=== PATIENT | female | born 1990 | race Caucasian/White ===

== ENCOUNTER 2022-01-30 15:16 | Emergency (ER) | payer OTHER ==
[2022-01-30 15:38] VITALS: BP 163/87; PULSE 107; RESP 18; TEMP 98.2; BMI 29.2
[2022-01-30 18:16] LABS: BASO % 0.5 % (0-2.0); EOS % 0.6 % (0-4.5); HEMATOCRIT 37.8 % (32.4-45.2); HEMOGLOBIN 12.8 GM/dL (10.7-15.3); LYMPH % 26.3 % (8-40); MCH 28.3 pg (25.7-33.7); MEAN CELL VOLUME 83.3 fl (80-96); MEAN PLT VOLUME 8.8 fl (7.5-11.1); MONO % 6.3 % (3.8-10.2); NEUT % 66.3 % (42.8-82.8); PLATELET COUNT 348 10^3/uL (134-434); RBC 4.54 M/mm3 (3.60-5.2); RDW 13.1 % (11.6-15.6); WHITE BLOOD COUNT 9.6 K/mm3 (4.0-10.0)
[2022-01-30 18:26] LABS: INR 1.07 (0.83-1.09); PROTHROMBIN TIME (PATIENT) 12.3 SEC (9.7-13.0)
[2022-01-30 18:29] LABS: ACTIVATED PTT 33.2 SECONDS (25.2-36.5)
[2022-01-30 18:33] LABS: CALCIUM 9.1 mg/dL (8.5-10.1)
[2022-01-30 18:34] LABS: ALBUMIN 3.6 g/dl (3.4-5.0); BLOOD UREA NITROGEN 10.2 mg/dL (7-18)
[2022-01-30 18:37] LABS: CREATININE 0.7 mg/dL (0.55-1.3)
[2022-01-30 18:38] LABS: BILIRUBIN,TOTAL 0.3 mg/dL (0.2-1); TOT PROT 6.9 g/dl (6.4-8.2)
[2022-01-30 20:43] LABS: EPI CELLS 18 /uL (0-25.1); HYALINE CASTS 1 /uL (0-3.1); URINE APPEARANCE CLEAR; URINE BACTERIA 261 /uL (0-1359); URINE BILIRUBIN NEGATIVE (NEGATIVE); URINE COLOR YELLOW; URINE GLUCOSE (UA) NEGATIVE (NEGATIVE); URINE KETONE NEGATIVE (NEGATIVE); URINE LEUK ESTERASE NEGATIVE (NEGATIVE); URINE NITRITE NEGATIVE (NEGATIVE); URINE PROTEIN NEGATIVE (NEGATIVE); URINE UROBILINOGEN 0.2 mg/dL (0.2-1.0); URINE WBC 6 /uL (0-25.8)
[2022-01-30 21:10] LABS: URINE RBC 24.8 /uL (0-23.9)
== END 2022-01-30 21:31 | disposition home or self-care (01) ==
LOC: JER 15:16
DX: O20.8 Other hemorrhage in early pregnancy (principal); Z3A.01 Less than 8 weeks gestation of pregnancy
CPT/HCPCS: 36415; 76801-TC; 80053; 81003; 84702; 85025; 85610; 85730; 86850; 86900; 86901; 87077; 87086; 99284-25

== ENCOUNTER 2022-09-14 08:10 | Inpatient (IN) | payer OTHER ==
[2022-09-14] MEDS ORDERED: ELECTROLYTE-148 SOLN 500 ML IV ONE (09:03)
[2022-09-14] MEDS ORDERED: CITRIC ACID/SODIUM CITRATE 30 ML UNIT-DOSE CUP PO ONE (09:03)
[2022-09-14] MEDS ORDERED: ELECTROLYTE-148 SOLN 1,000 ML IV SCH (09:30)
[2022-09-14 09:40] VITALS: BMI 34.0
[2022-09-14] MEDS ORDERED: morphine SULFATE/PF 1 MG/2 ML (2cc Syringe - QUVA) ONE (10:18)
[2022-09-14 11:27] LABS: URINE APPEARANCE CLEAR; URINE BILIRUBIN NEGATIVE (NEGATIVE); URINE COLOR YELLOW; URINE GLUCOSE (UA) NEGATIVE (NEGATIVE); URINE KETONE NEGATIVE (NEGATIVE); URINE LEUK ESTERASE NEGATIVE (NEGATIVE); URINE NITRITE NEGATIVE (NEGATIVE); URINE PROTEIN NEGATIVE (NEGATIVE)
[2022-09-14] MEDS ORDERED: ONDANSETRON 4 MG/2 ML VIAL IVPUSH PRN (11:48)
[2022-09-14] MEDS ORDERED: IBUPROFEN 800 MG/8 ML IJ IVPB PRN (13:35)
[2022-09-14] MEDS ORDERED: OXYTOCIN 20 UNITS in 0.9% NS 20 UNIT/1,000 ML INFUS.BAG IV SCH (13:45)
[2022-09-14] MEDS ORDERED: hydrALAZINE HCL 20 MG/ML VIAL IVPUSH STA (13:55)
[2022-09-14] MEDS ORDERED: IBUPROFEN 800 MG/8 ML IJ IVPB ONE (13:56)
[2022-09-14] MEDS ORDERED: LABETALOL HCL 100 MG TABLET (FP) PO SCH (15:01)
[2022-09-14] MEDS: LABETALOL HCL 200 MG TABLET (FP) PO SCH (22:14)
[2022-09-15] MEDS ORDERED: oxyCODONE HCL 5 MG TABLET PO PRN (01:35)
[2022-09-15 07:39] LABS: BASO % 0.4 % (0-2.0); EOS % 0.2 % (0-4.5); HEMATOCRIT 27.8 % (32.4-45.2); HEMOGLOBIN 9.4 GM/dL (10.7-15.3); LYMPH % 16.9 % (8-40); MCH 29.1 pg (25.7-33.7); MCHC 33.9 g/dl (32.0-36.0); MEAN CELL VOLUME 85.9 fl (80-96); MEAN PLT VOLUME 9.6 fl (7.5-11.1); MONO % 5.8 % (3.8-10.2); NEUT % 76.7 % (42.8-82.8); PLATELET COUNT 218 10^3/uL (134-434); RBC 3.23 M/mm3 (3.60-5.2); WHITE BLOOD COUNT 9.1 K/mm3 (4.0-10.0)
[2022-09-15] MEDS: LABETALOL HCL 200 MG TABLET (FP) PO SCH ×2 (09:43→21:13)
[2022-09-15] MEDS: ACETAMINOPHEN 325 MG TABLET (FP) PO PRN (09:44)
[2022-09-15] MEDS ORDERED: BISACODYL 10 MG SUPP.RECT RC PRN (13:35)
[2022-09-15] MEDS: IBUPROFEN 600 MG TABLET (FP) PO PRN (16:29)
[2022-09-15] MEDS: SIMETHICONE 80 MG TAB.CHEW (FP) PO PRN (21:12)
[2022-09-16] MEDS: IBUPROFEN 600 MG TABLET (FP) PO PRN ×2 (09:11→18:01)
[2022-09-16] MEDS: SIMETHICONE 80 MG TAB.CHEW (FP) PO PRN ×3 (09:12→21:33)
[2022-09-16] MEDS: LABETALOL HCL 200 MG TABLET (FP) PO SCH ×2 (09:12→21:33)
[2022-09-17] MEDS: ACETAMINOPHEN 325 MG TABLET (FP) PO PRN (05:57)
[2022-09-17 08:14] LABS: BASO % 0.5 % (0-2.0); HEMATOCRIT 23.4 % (32.4-45.2); HEMOGLOBIN 7.9 GM/dL (10.7-15.3); LYMPH % 24.1 % (8-40); MCH 28.8 pg (25.7-33.7); MCHC 33.6 g/dl (32.0-36.0); MEAN CELL VOLUME 85.9 fl (80-96); MEAN PLT VOLUME 9.3 fl (7.5-11.1); MONO % 7.7 % (3.8-10.2); NEUT % 65.7 % (42.8-82.8); PLATELET COUNT 266 10^3/uL (134-434); RBC 2.72 M/mm3 (3.60-5.2); RDW 14.1 % (11.6-15.6)
[2022-09-17 08:54] VITALS: BP 151/94; PULSE 85; RESP 18; TEMP 98.6
[2022-09-17] MEDS: LABETALOL HCL 200 MG TABLET (FP) PO SCH (09:40)
== END 2022-09-17 14:25 | disposition home or self-care (01) | DRG 540 ==
LOC: JLDR 08:10 → J3W 15:20
PROVIDERS: ADMIT Student in an Organized Health Care Education/Training Program; ATTEND Student in an Organized Health Care Education/Training Program
PROC: 10D00Z1 Extraction of Products of Conception, Low, Open Approach (ICD-10-PCS; principal; 2022-09-14)
DX: O82 Encounter for cesarean delivery without indication (principal); O10.92 Unspecified pre-existing hypertension complicating childbirth; Z3A.39 39 weeks gestation of pregnancy; Z37.0 Single live birth
CPT/HCPCS: 36415; 80053; 81003; 85025; 85610; 86780; 86850; 86900; 86901; 88307-TC; 94010